=== PATIENT | female | born 1960 | race Caucasian/White ===

== ENCOUNTER 2019-04-26 09:45 | Inpatient (IN) | payer MEDICARE, MEDICAID ==
[~2019-04-26] VITALS: Ht 154.9 cm; Wt 45.4 kg
[~2019-04-26 09:45] MED LIST: ARIP15TA2 PO; Benztropine Mesylate PO; GABA-529 PO; LEVO150 PO
[2019-04-26] MEDS ORDERED: HALOPERIDOL LACTATE 5 MG/ML VIAL ONE (10:43)
[2019-04-26] MEDS ORDERED: HALOPERIDOL LACTATE 5 MG/ML VIAL IM ONE (10:45)
[2019-04-26] MEDS ORDERED: LORATADINE 10 MG TABLET PO ONE (10:45)
[2019-04-26 11:24] LABS: BASOPHILS % (AUTO) 2.1 % (0.0-2.0); HEMATOCRIT 25.6 % (36-46); HEMOGLOBIN 7.8 g/dL (12.0-16.0); LYMPHOCYTES % (AUTO) 16.8 % (22.0-44.0); MEAN CORPUSCULAR HEMOGLOBIN 20.1 pg (26.0-34.0); MEAN CORPUSCULAR HGB CONC 30.7 G/dL (31.0-37.0); MEAN CORPUSCULAR VOLUME 66 fL (80-100); MONOCYTES # (AUTO) 0.5 K/uL (0.1-1.0); MONOCYTES % (AUTO) 7.9 % (2.0-9.0); NEUTROPHILS # (AUTO) 3.4 K/uL (1.8-7.7); NEUTROPHILS % (AUTO) 56.8 % (40.0-70.0); PLATELET COUNT (AUTO) 597 K/uL (150-450); RED CELL DISTRIBUTION WIDTH 19.6 % (11.5-14.5)
[2019-04-26 11:25] LABS: EOSINOPHILS % (AUTO) 16.4 % (1.0-6.0)
[2019-04-26 11:34] LABS: ANION GAP 10 mmol/L (8-16); CARBON DIOXIDE 24 mmol/L (22-29); CHLORIDE 105 mmol/L (98-107); CREATININE 0.81 mg/dL (0.60-1.30); GLOMERULAR FILTR. RATE CALC > 60 mL/min (>60); GLUCOSE,RANDOM 82 mg/dL (70-110); SODIUM SERUM 139 mmol/L (136-145); UREA NITROGEN, BLOOD 17 mg/dL (7-18)
[2019-04-26 11:39] LABS: ALANINE AMINOTRANSFERASE 22 U/L (12-78); ALBUMIN 3.2 g/dL (3.4-5.0); ALKALINE PHOSPHATASE 89 U/L (46-116); ASPARTATE AMINOTRANSFERASE 22 U/L (15-37); BILIRUBIN,TOTAL 0.1 mg/dL (0.1-1.0); TOTAL PROTEIN, SERUM 6.9 g/dL (6.4-8.2)
[2019-04-26 11:40] LABS: ACETAMINOPHEN < 2 mcg/mL (10-30)
[2019-04-26 11:44] LABS: SALICYLATE 2.5 mg/dL (2.8-20.0)
[2019-04-26] MEDS ORDERED: NICOTINE 14 MG/24 HOUR PATCH TD PRN ×2 (14:00→19:30)
[2019-04-26] MEDS ORDERED: MAG HYDROX/AL HYDROX/SIMETH ES 30 ML SUSPENSION UDCUP PO PRN ×2 (14:00→19:30)
[2019-04-26] MEDS ORDERED: LORazepam 2 MG TABLET PO PRN (14:00)
[2019-04-26] MEDS ORDERED: ZOLPIDEM TARTRATE 10 MG TABLET PO PRN (14:00)
[2019-04-26] MEDS ORDERED: LOPERAMIDE HCL 2 MG CAPSULE PO PRN ×2 (14:00→19:30)
[2019-04-26] MEDS ORDERED: ALBUTEROL SULFATE HFA 90 MCG/PUFF 8 GM INHALER IH PRN ×2 (14:00→19:30)
[2019-04-26] MEDS ORDERED: HALOPERIDOL 5 MG TABLET PO PRN (14:00)
[2019-04-26] MEDS ORDERED: DOCUSATE SODIUM 100 MG CAPSULE PO PRN ×2 (14:00→19:30)
[2019-04-26] MEDS ORDERED: CloNIDine HCL 0.1 MG TABLET PO PRN ×2 (14:00→19:30)
[2019-04-26] MEDS ORDERED: MAGNESIUM HYDROXIDE SUSPENSION 30 ML UDCUP PO PRN ×2 (14:00→19:30)
[2019-04-26] MEDS ORDERED: GuaiFENesin/D-METHORPHAN [SUGAR-FREE] 200-20MG/10 ML SYRUP UDCUP PO PRN ×2 (14:00→19:30)
[2019-04-26] MEDS ORDERED: ACETAMINOPHEN 325 MG TABLET PO PRN ×2 (14:00→19:30)
[2019-04-26] MEDS ORDERED: ONDANSETRON HCL 4 MG TABLET PO PRN ×2 (14:00→19:30)
[2019-04-26 19:22] VITALS: BP 131/72
[2019-04-26] MEDS: FERROUS SULFATE 325 MG EC TABLET PO SCH (19:22)
[2019-04-26] MEDS ORDERED: PETROLATUM,WHITE 28 GM JELLY TP PRN (19:30)
[2019-04-26] MEDS ORDERED: IBUPROFEN 400 MG TABLET PO PRN (19:30)
[2019-04-26] MEDS: IBUPROFEN 400 MG TABLET PO PRN (19:59)
[2019-04-27 01:44] VITALS: BP 107/67
[2019-04-27] MEDS: LEVOTHYROXINE SODIUM 150 MCG TABLET PO SCH (06:31)
[2019-04-27] MEDS: FERROUS SULFATE 325 MG EC TABLET PO SCH ×2 (06:33→16:54)
[2019-04-27] MEDS ORDERED: INFLUENZA VIRUS VACCINE QVS 2019-20 (3YR+)/PF 60 MCG/0.5 ML SYRINGE IM ONE (07:15)
[2019-04-27 07:41] LABS: HEMATOCRIT 25.7 % (36-46); HEMOGLOBIN 7.8 g/dL (12.0-16.0); LYMPHOCYTES % (AUTO) 18.5 % (22.0-44.0); MEAN CORPUSCULAR HEMOGLOBIN 20.2 pg (26.0-34.0); MEAN CORPUSCULAR HGB CONC 30.5 G/dL (31.0-37.0); MEAN CORPUSCULAR VOLUME 66 fL (80-100); MONOCYTES # (AUTO) 0.5 K/uL (0.1-1.0); MONOCYTES % (AUTO) 10.5 % (2.0-9.0); NEUTROPHILS # (AUTO) 2.7 K/uL (1.8-7.7); NEUTROPHILS % (AUTO) 51.9 % (40.0-70.0); PLATELET COUNT (AUTO) 595 K/uL (150-450); RED BLOOD CELL COUNT(AUTO) 3.87 MIL/uL (4.00-5.20); RED CELL DISTRIBUTION WIDTH 19.8 % (11.5-14.5)
[2019-04-27 08:04] LABS: EOSINOPHILS % (AUTO) 17.1 % (1.0-6.0)
[2019-04-27 08:11] LABS: ALANINE AMINOTRANSFERASE 18 U/L (12-78); ALBUMIN 2.7 g/dL (3.4-5.0); ALKALINE PHOSPHATASE 81 U/L (46-116); ANION GAP 8 mmol/L (8-16); ASPARTATE AMINOTRANSFERASE 17 U/L (15-37); CALCIUM, TOTAL 8.2 mg/dL (8.8-10.5); CARBON DIOXIDE 26 mmol/L (22-29); CHLORIDE 104 mmol/L (98-107); CHOLESTEROL 139 mg/dL (131-200); CREATININE 0.64 mg/dL (0.60-1.30); GLOMERULAR FILTR. RATE CALC > 60 mL/min (>60); GLUCOSE,RANDOM 139 mg/dL (70-110); HCG,QUANTITATIVE 4 mIU/mL (0-6); HDL CHOLESTEROL 35 mg/dL (40-60); LDL CHOL (CALC.) 78 mg/dL (0-130); POTASSIUM 4.1 mmol/L (3.5-5.1); SODIUM SERUM 138 mmol/L (136-145); TOTAL PROTEIN, SERUM 6.1 g/dL (6.4-8.2); TRIGLYCERIDES 132 mg/dL (15-150); UREA NITROGEN, BLOOD 18 mg/dL (7-18)
[2019-04-27 08:18] LABS: HEMOGLOBIN A1C 6.1 % (3.8-5.6)
[2019-04-27 08:20] LABS: BILIRUBIN,TOTAL 0.1 mg/dL (0.1-1.0)
[2019-04-27] MEDS ORDERED: COLLOIDAL OATMEAL/DIMETH 227 GM LOTION TP SCH (09:00)
[2019-04-27] MEDS: GABAPENTIN 100 MG CAPSULE PO SCH ×3 (09:13→16:54)
[2019-04-27] MEDS: PETROLATUM,WHITE 28 GM JELLY TP PRN (14:24)
[2019-04-27 16:20] VITALS: BP 110/70
[2019-04-27] MEDS: LITHIUM CARBONATE 300 MG CAPSULE PO SCH (16:54)
[2019-04-28 00:31] VITALS: BP 116/76
[2019-04-28] MEDS: LEVOTHYROXINE SODIUM 150 MCG TABLET PO SCH (06:29)
[2019-04-28] MEDS: FERROUS SULFATE 325 MG EC TABLET PO SCH ×2 (06:49→16:48)
[2019-04-28 08:21] VITALS: BP 110/61
[2019-04-28] MEDS: LITHIUM CARBONATE 300 MG CAPSULE PO SCH ×2 (12:17→16:48)
[2019-04-28] MEDS: GABAPENTIN 100 MG CAPSULE PO SCH ×3 (12:18→16:47)
[2019-04-28] MEDS: IBUPROFEN 400 MG TABLET PO PRN (15:55)
[2019-04-28 16:00] VITALS: BP 111/66
[2019-04-28 23:58] VITALS: BP 100/57
[2019-04-29 00:09] VITALS: BP 100/57
[2019-04-29] MEDS: LEVOTHYROXINE SODIUM 150 MCG TABLET PO SCH (06:48)
[2019-04-29] MEDS: FERROUS SULFATE 325 MG EC TABLET PO SCH ×2 (06:48→16:34)
[2019-04-29 08:24] VITALS: BP 118/71
[2019-04-29] MEDS: LITHIUM CARBONATE 300 MG CAPSULE PO SCH ×2 (09:07→16:34)
[2019-04-29] MEDS: GABAPENTIN 100 MG CAPSULE PO SCH ×3 (09:07→16:34)
[2019-04-29] MEDS: PETROLATUM,WHITE 28 GM JELLY TP PRN (09:19)
[2019-04-29 16:26] VITALS: BP 113/76
[2019-04-30 00:26] VITALS: BP 112/68
[2019-04-30] MEDS: LEVOTHYROXINE SODIUM 150 MCG TABLET PO SCH (07:00)
[2019-04-30] MEDS: FERROUS SULFATE 325 MG EC TABLET PO SCH (07:00)
[2019-04-30 08:09] VITALS: BP 110/63
[2019-04-30] MEDS: GABAPENTIN 100 MG CAPSULE PO SCH ×2 (08:43→12:46)
[2019-04-30] MEDS: LITHIUM CARBONATE 300 MG CAPSULE PO SCH (08:43)
[2019-04-30] MEDS ORDERED: LITH300C3 PO (10:03)
[2019-04-30] MEDS ORDERED: FERR-89 PO (10:48)
[2019-04-30] MEDS ORDERED: LITH300CRT PO (10:51)
[2019-04-30] MEDS ORDERED: GABA-529 PO (10:56)
== END 2019-04-30 13:25 | disposition home or self-care (01) | DRG 885 ==
LOC: EMS 09:51 → B2X 17:12
DX: F25.1 Schizoaffective disorder, depressive type (principal); T42.6X2A Poisoning by other antiepileptic and sedative-hypnotic drugs, intentional self-harm, initial encounter; E03.9 Hypothyroidism, unspecified; F31.9 Bipolar disorder, unspecified; Z96.659 Presence of unspecified artificial knee joint; F17.210 Nicotine dependence, cigarettes, uncomplicated; F10.10 Alcohol abuse, uncomplicated; Y90.9 Presence of alcohol in blood, level not specified; M19.90 Unspecified osteoarthritis, unspecified site; F12.90 Cannabis use, unspecified, uncomplicated; F19.10 Other psychoactive substance abuse, uncomplicated; D64.9 Anemia, unspecified; R73.03 Prediabetes; Z98.84 Bariatric surgery status; Z88.0 Allergy status to penicillin; Y92.89 Other specified places as the place of occurrence of the external cause; Z85.850 Personal history of malignant neoplasm of thyroid; Z71.51 Drug abuse counseling and surveillance of drug abuser; Z23 Encounter for immunization
CPT/HCPCS: 83036; 84443; 90686; G0480; G0481; J1630